=== PATIENT | female | born 1940 | race Caucasian/White ===

== ENCOUNTER 2023-02-06 09:45 | Emergency (ER) | payer OTHER, MEDICARE, BC ==
[~2023-02-06] VITALS: Ht 157.5 cm; Wt 78.5 kg
[2023-02-06] MEDS ORDERED: LISINOPRIL20 MG PO (09:48)
[2023-02-06] MEDS ORDERED: LISINOPRIL10 MG PO (10:16)
[2023-02-06] MEDS ORDERED: NORVASC2.5 MG PO (10:17)
[2023-02-06] MEDS ORDERED: PRAVASTATIN SOD10 MG PO (10:18)
[2023-02-06] MEDS ORDERED: NORVASC5 MG PO (10:18)
[2023-02-06 12:40] VITALS: BP 132/62
== END 2023-02-06 12:40 | disposition home or self-care (01) ==
LOC: ED 09:45
DX: S02.2XXA Fracture of nasal bones, initial encounter for closed fracture (principal); S01.81XA Laceration without foreign body of other part of head, initial encounter; W01.10XA Fall on same level from slipping, tripping and stumbling with subsequent striking against unspecified object, initial encounter; I10 Essential (primary) hypertension; Z88.0 Allergy status to penicillin; Z88.5 Allergy status to narcotic agent; Z79.899 Other long term (current) drug therapy
CPT/HCPCS: 12013; 36415; 70450; 70486; 80053; 85025; 86850; 86900; 86901; 99284-25; G0480